=== PATIENT | male | born 1990 | race Caucasian/White ===

== ENCOUNTER 2016-12-02 15:27 | Emergency (ER) | payer OTHER ==
[2016-12-02 15:35] VITALS: TEMP 97.9; BMI 33.5
[2016-12-02] MEDS ORDERED: SODIUM CHLORIDE 1,000 ML IV STA (16:24)
[2016-12-02] MEDS ORDERED: PANTOPRAZOLE SODIUM 40 MG in SODIUM CHLORIDE 100 ML IVPB ONE (16:29)
[2016-12-02] MEDS ORDERED: MAG HYDROX/AL HYDROX/SIMETH 30 ML UNIT-DOSE CUP PO ONE (16:30)
[2016-12-02] MEDS ORDERED: RANITIDINE HCL 150 MG TABLET (FP) PO ONE (16:30)
--- NOTE | 2016-12-02 16:41 | PDOC ---
History of Present Illness - General Chief Complaint: Pain Stated Complaint: ABD PAIN Time Seen by Provider: 12/02/16 16:23 History Source: Patient Exam Limitations: No Limitations - History of Present Illness Travel History: No Initial Comments: 12/02/16 16:34 26 yr male with c/o epigastirc pain for 2 weeks would resolve after eating. Pt states the symptoms improved with zantac. Pt here today stating pain became more constant, not improved after eating. no vomiting no fever no abd pain now. Pain Radiation: reports: no radiation Past History - Past Medical History Allergies/Adverse Reactions: Allergies Allergy/AdvReac Type Severity Reaction Status Date / Time No Known Allergies Allergy Verified 12/02/16 15:31 Home Medications: Ambulatory Orders Ranitidine HCl [Zantac] 150 mg PO BID #28 tablet 12/02/16 Thyroid Disease: No - Psycho/Social/Smoking Cessation Hx Anxiety: No Suicidal Ideation: No Smoking Status: No Smoking History: Never smoked Have you smoked in the past 12 months: Yes Number of Cigarettes Smoked Daily: 1 Hx Alcohol Use: Yes (occassional) Drug/Substance Use Hx: No Substance Use Type: None *Physical Exam - Vital Signs Last Vital Signs Temp Pulse Resp BP Pulse Ox 97.9 F 70 18 150/90 100 12/02/16 15:31 12/02/16 15:31 12/02/16 15:31 12/02/16 15:31 12/02/16 15:31 - Physical Exam General Appearance: Yes: Nourished, Appropriately Dressed HEENT: positive: EOMI, MARIN, Normal ENT Inspection, TMs Normal, Pharynx Normal Neck: positive: Supple. negative: Tender Respiratory/Chest: positive: Lungs Clear, Normal Breath Sounds. negative: Chest Tender Cardiovascular: positive: Regular Rhythm, Regular Rate Gastrointestinal/Abdominal: positive: Normal Bowel Sounds, Other (no tenderness on exam ). negative: Tender Musculoskeletal: positive: Normal Inspection Extremity: positive: Normal Capillary Refill, Normal Inspection, Normal Range of Motion Integumentary: positive: Normal Color, Dry, Warm Neurologic: positive: Fully Oriented, Alert, Normal Mood/Affect, Normal Response , Motor Strength 5/5 ED Treatment Course - LABORATORY CBC & Chemistry Diagram: 12/02/16 16:37 12/02/16 16:37 - RADIOLOGY Radiology Studies Ordered: Category Date Time Status ABDOMEN US -LIMITED [US] Stat Ultrasound 12/02/16 16:31 Ordered Medical Decision Making - Medical Decision Making 12/02/16 17:50 cc: epigastric tenderness for 2 weeks , improved after eating neg fever, neg nvd , neg diarrhea pt ate bland food today with some pain , got worse today pt came to ER pt taking zantac at home with relief. will check labs, pepcid US to r/o gallstones *DC/Admit/Observation/Transfer Diagnosis at time of Disposition: Gastric reflux syndrome - Prescriptions Prescriptions: Ranitidine HCl [Zantac] 150 mg PO BID #28 tablet - Referrals Referrals: Tam Hayes MD [Staff Physician] - - Patient Instructions Additional Instructions: bland diet as tolerated take zantac as directed follow with the residential electrician call Monday to make appointment
[2016-12-02] MEDS ORDERED: RANITIDINE HCL 150 MG TABLET (FP) ONE (16:45)
[2016-12-02] MEDS ORDERED: PANTOPRAZOLE SODIUM 100 ML IVPB ONE (16:46)
[2016-12-02] MEDS ORDERED: MAG HYDROX/AL HYDROX/SIMETH 30 ML UNIT-DOSE CUP ONE (16:46)
[2016-12-02 16:50] LABS: BASOPHIL 0.6 % (0-2.0); EOSINOPHIL 1.8 % (0-4.5); MCH 27.5 pg (25.7-33.7); MEAN PLT VOLUME 8.9 fl (7.5-11.1); NEUTROPHILS 71.6 % (42.8-82.8); PLATELET COUNT 203 K/MM3 (134-434); RDW 13.6 % (11.9-15.9); WHITE BLOOD COUNT 8.5 K/mm3 (4.0-10.0)
[2016-12-02 17:19] LABS: ALBUMIN 4.2 g/dl (3.4-5.0); ALK PHOS 57 U/L (45-117); ANION GAP 9 (8-16); BILIRUBIN,TOTAL 1.4 mg/dL (0.2-1.0); CALCIUM 9.1 mg/dL (8.5-10.1); CO2 29 mmol/L (21-32); CREATININE 1.2 mg/dL (0.7-1.3); GLUCOSE,RANDOM 90 mg/dL (74-106); SGOT/AST 20 U/L (15-37); SGPT/ALT 38 U/L (12-78); TOT PROT 6.8 g/dl (6.4-8.2)
[2016-12-02 17:28] LABS: URINE APPEARANCE CLEAR; URINE BILIRUBIN NEGATIVE (NEGATIVE); URINE BLOOD NEGATIVE (NEGATIVE); URINE COLOR STRAW; URINE GLUCOSE (UA) NEGATIVE (NEGATIVE); URINE KETONE NEGATIVE (NEGATIVE); URINE LEUK ESTERASE NEGATIVE (NEGATIVE); URINE NITRITE NEGATIVE (NEGATIVE); URINE PROTEIN NEGATIVE (NEGATIVE); URINE UROBILINOGEN NEGATIVE E.U./dl (0.2-1.0)
[2016-12-02 19:09] VITALS: BP 138/80; PULSE 69
== END 2016-12-02 19:09 | disposition home or self-care (01) ==
LOC: JER 15:27
DX: K21.9 Gastro-esophageal reflux disease without esophagitis (principal)
CPT/HCPCS: 36415; 76705-TC; 80053; 81003; 83690; 85025; 99282-25